=== PATIENT | female | born 1940 | race Caucasian/White ===

== ENCOUNTER 2018-08-30 16:28 | Inpatient (IN) ==
[2018-08-30 17:03] LABS: Baso % (Auto) 0.3 % (0.0-2.0); Eos # (Auto) 0.1 th/mm3 (0.0-0.4); Eos % (Auto) 1.3 % (0.0-4.0); Hematocrit 35.4 % (35.0-46.0); Hemoglobin 11.8 gm/dL (11.6-15.3); Lymph # (Auto) 1.5 th/mm3 (1.0-4.8); Lymph % (Auto) 13.7 % (9.0-44.0); Mean Corpuscular HGB Conc 33.2 % (32.0-36.0); Mean Corpuscular Hemoglobin 28.6 pg (27.0-34.0); Mean Corpuscular Volume 86.2 fL (80.0-100.0); Mean Platelet Volume 7.8 fL (7.0-11.0); Mono # (Auto) 0.8 th/mm3 (0.0-0.9); Mono % (Auto) 7.3 % (0.0-8.0); Neut # (Auto) 8.2 th/mm3 (1.8-7.7); Neut % (Auto) 77.4 % (16.0-70.0); Platelet Count 283 th/mm3 (150-450); Red Blood Count 4.11 mil/mm3 (4.00-5.30); Red Cell Distribution Width 15.4 % (11.6-17.2); White Blood Count 10.7 th/mm3 (4.0-11.0)
--- NOTE | 2018-08-30 17:19 | ED ---
HPI General Chief Complaint: Fall Stated Complaint: fall/evac Time Seen by Provider: 08/30/18 16:35 Source: patient Mode of arrival: EMS Limitations: no limitations History of Present Illness HPI Narrative: 78 y/o female had a trip and fall at the doctor's office and injured her left hip. She states she did not hit her head or blackout. She denies any complaints other than left hip pain. She states she recently broke that hip and Dr. mitchell did the repair at [facility]. She was actually at his office when she fell and they took an x-ray and confirm she had a fracture. Per the ambulance team he felt this was out of his scope of practice and wanted her to come to the trauma center for a different physician to fix her hip. Quality pain is sharp. Severity is improving. Patient received 10 mg of morphine prior to arrival. Pain is worse with movement. She denies other modifying factors. she states she did not hit her head Related Data Home Medications Medication Instructions Recorded Confirmed atorvastatin 40 mg PO HS 08/30/18 08/30/18 bupropion HCl 150 mg PO QAM 08/30/18 08/30/18 carvedilol 6.25 mg PO HS 08/30/18 08/30/18 fluoxetine 40 mg PO DAILY 08/30/18 08/30/18 hydrocodone-acetaminophen 1 tab PO Q4H 08/30/18 08/30/18 levothyroxine 50 mcg PO DAILY 08/30/18 08/30/18 lisinopril 40 mg PO DAILY 08/30/18 08/30/18 lorazepam 0.5 mg PO HS 08/30/18 08/30/18 Allergies Allergy/AdvReac Type Severity Reaction Status Date / Time No Known Allergies Allergy Verified 08/30/18 19:12 Review of Systems ROS: all other systems reviewed are negative PMFSH History History Provided By: Patient (recent hip fracture, hypertension, hypothyroidism) Medical History Medical History Anxiety (Acute) Depression (Acute) Hyperlipidemia (Acute) Hypertension (Acute) Hypothyroidism (Acute) Surgical History Surgical History History of repair of left hip joint (Acute) Family History Family History Other No pertinent family history Social History Social History Substance History: No History of Abuse Second Hand Smoke Exposure: No Smoking Status: Never smoker How Often Do You Have a Drink Containing Alcohol: Never Recent Travel in [facility] within the Last 8 Weeks: No Recent Out of Country Travel within the Last 8 Weeks: No Exam Narrative Exam Narrative: GENERAL: 78 y/o female in no apparent distress SKIN: Focused skin assessment warm/dry. HEAD: Atraumatic. Normocephalic. EYES: Pupils equal and round. No scleral icterus. No injection or drainage. ENT: No nasal bleeding or discharge. Mucous membranes pink and moist. NECK: Trachea midline. No JVD. CARDIOVASCULAR: Regular rate and rhythm. RESPIRATORY: No accessory muscle use. Clear to auscultation. Breath sounds equal bilaterally. GASTROINTESTINAL: Abdomen soft, non-tender, nondistended. MUSCULOSKELETAL: Pain with palpation of left hip with shortening and rotation, no pain with other joints , neurovascularly intact, no lacerations over, compartments soft. NEUROLOGICAL: Awake. Motor grossly within normal limits limited from hip fracture. Normal speech. PSYCHIATRIC: Appropriate mood and affect; insight and judgment normal. Course Reevaluation(s) Reevaluation #1: patient updated about fracture, agrees to admit Reevaluation #2: While I was in a cardiac arrest. Patient went upstairs before I talked with orthopedic physician although I had a call out. Patient updated upstairs and agrees to transfer if needed. Consultations Consultation #1: dr perez agrees to admit Consultation #2: dr Huertas states to call Dr. Rivera on a recorded line to state that he cannot accept this patient and what his recommendation is Consultation #3: dr rivera states will talk with [facility] about transfer dr huertas states this is not something he can do and need to transfer patient dr caballero who is now covering for the hospitalist states she does not know this patient and requests for me to call the transfer center but will put an order needed for transfer [phone] dr caballero graciously accepts to talk with the transfer center to coordinate care as my shift ended at 1900 and patient is already upstairs Initial Documented Vital Signs Temperature 98.3 F 08/30/18 16:34 Pulse Rate 79 11/13/18 16:34 Respiratory Rate 18 08/30/18 16:34 Blood Pressure 128/71 08/30/18 16:34 Pulse Oximetry 100 08/30/18 16:34 Last Documented Vital Signs Temperature 98.0 F 08/31/18 03:16 Pulse Rate 91 H 08/31/18 03:16 Respiratory Rate 18 08/31/18 03:16 Blood Pressure 130/81 08/31/18 03:16 Pulse Oximetry 97 08/31/18 03:16 Medical Decision Making MDM Narrative Medical decision making narrative: Will check x-ray and lab and reevaluate. Patient with emesis in x-ray after morphine was provided with Zofran Medical Screen Exam Complete: Yes Emergency Medical Condition: Yes Differential Diagnosis Differential Diagnosis: Fracture, dislocation, strain Lab Data Lab results reviewed: Yes I reviewed the patient's lab results. Result diagrams: 08/30/18 16:45 08/30/18 16:45 Lab Results 08/30/18 08/30/18 08/30/18 Range/Units 16:45 16:45 16:45 WBC 10.7 (4.0-11.0) th/mm3 RBC 4.11 (4.00-5.30) mil/mm3 Hgb 11.8 (11.6-15.3) gm/dL Hct 35.4 (35.0-46.0) % MCV 86.2 (80.0-100.0) fL MCH 28.6 (27.0-34.0) pg MCHC 33.2 (32.0-36.0) % RDW 15.4 (11.6-17.2) % Plt Count 283 (150-450) th/mm3 MPV 7.8 (7.0-11.0) fL Neut % (Auto) 77.4 H (16.0-70.0) % Lymph % (Auto) 13.7 (9.0-44.0) % Antelope % (Auto) 7.3 (0.0-8.0) % Eos % (Auto) 1.3 (0.0-4.0) % Baso % (Auto) 0.3 (0.0-2.0) % Neut # (Auto) 8.2 H (1.8-7.7) th/mm3 Lymph # (Auto) 1.5 (1.0-4.8) th/mm3 Antelope # (Auto) 0.8 (0.0-0.9) th/mm3 Eos # (Auto) 0.1 (0.0-0.4) th/mm3 Baso # (Auto) 0.0 (0.0-0.2) th/mm3 WBC Differential . Differential Comment Auto diff final PT 10.1 (9.8-11.6) sec INR 1.0 Ratio APTT 22.4 L (23.4-31.7) sec Sodium 138 (136-145) meq/L Potassium 3.9 (3.5-5.1) meq/L Chloride 104 (98-107) meq/L Carbon Dioxide 23.6 (21.0-32.0) meq/L Anion Gap 10 (5-15) meq/L BUN 14 (7-18) mg/dL Creatinine 0.97 (0.50-1.00) mg/dL Estimated GFR 56 L (>89) mL/min Random Glucose 123 H (74-106) mg/dL Calcium 9.1 (8.5-10.1) mg/dL Total Bilirubin 0.8 (0.2-1.0) mg/dL AST 22 (15-37) U/L ALT 23 (10-53) U/L Alkaline Phosphatase 120 H (45-117) U/L Total Protein 6.6 (6.4-8.2) g/dL Albumin 3.6 (3.4-5.0) g/dL Urine Color (Yellw/Straw) Urine Clarity (Clear) Urine pH (5.0-8.5) Ur Specific Solomon (1.002-1.035) Urine Protein (Neg-Trace) mg/dL Urine Glucose (UA) (Negative) mg/dL Urine Ketones (Negative) mg/dL Urine Occult Blood (Negative) Urine Nitrate (Negative) Urine Bilirubin (Negative) Urine Urobilinogen (Less than 2) mg/dL Ur Leukocyte Esterase (Negative) Urine RBC (0-3) /hpf Urine WBC (0-5) /hpf Ur Squamous Epith Cells (0-5) /hpf Hyaline Casts (0-3) /lpf Urine Mucus (Occasional) /lpf Ur Microscopic Review 08/30/18 Range/Units 21:30 WBC (4.0-11.0) th/mm3 RBC (4.00-5.30) mil/mm3 Hgb (11.6-15.3) gm/dL Hct (35.0-46.0) % MCV (80.0-100.0) fL MCH (27.0-34.0) pg MCHC (32.0-36.0) % RDW (11.6-17.2) % Plt Count (150-450) th/mm3 MPV (7.0-11.0) fL Neut % (Auto) (16.0-70.0) % Lymph % (Auto) (9.0-44.0) % Antelope % (Auto) (0.0-8.0) % Eos % (Auto) (0.0-4.0) % Baso % (Auto) (0.0-2.0) % Neut # (Auto) (1.8-7.7) th/mm3 Lymph # (Auto) (1.0-4.8) th/mm3 Antelope # (Auto) (0.0-0.9) th/mm3 Eos # (Auto) (0.0-0.4) th/mm3 Baso # (Auto) (0.0-0.2) th/mm3 WBC Differential Differential Comment PT (9.8-11.6) sec INR Ratio APTT (23.4-31.7) sec Sodium (136-145) meq/L Potassium (3.5-5.1) meq/L Chloride (98-107) meq/L Carbon Dioxide (21.0-32.0) meq/L Anion Gap (5-15) meq/L BUN (7-18) mg/dL Creatinine (0.50-1.00) mg/dL Estimated GFR (>89) mL/min Random Glucose (74-106) mg/dL Calcium (8.5-10.1) mg/dL Total Bilirubin (0.2-1.0) mg/dL AST (15-37) U/L ALT (10-53) U/L Alkaline Phosphatase (45-117) U/L Total Protein (6.4-8.2) g/dL Albumin (3.4-5.0) g/dL Urine Color Yellow (Yellw/Straw) Urine Clarity Clear (Clear) Urine pH 7.0 (5.0-8.5) Ur Specific Solomon 1.014 (1.002-1.035) Urine Protein Negative (Neg-Trace) mg/dL Urine Glucose (UA) Negative (Negative) mg/dL Urine Ketones Trace H (Negative) mg/dL Urine Occult Blood Negative (Negative) Urine Nitrate Negative (Negative) Urine Bilirubin Negative (Negative) Urine Urobilinogen Less than 2 (Less than 2) mg/dL Ur Leukocyte Esterase Negative (Negative) Urine RBC 2 (0-3) /hpf Urine WBC 2 (0-5) /hpf Ur Squamous Epith Cells <1 (0-5) /hpf Hyaline Casts 1 (0-3) /lpf Urine Mucus Few H (Occasional) /lpf Ur Microscopic Review Not Reportable Imaging Data Attestation: I personally reviewed and interpreted this imaging study as follows : Radiologist's impression: Chest X-Ray 08/30/18 16:39 CONCLUSION: No acute cardiopulmonary findings. Hip X-Ray 08/30/18 16:40 CONCLUSION: 1. Acute comminuted displaced fracture involving the left proximal femur in the region of the femoral component of the left total hip prosthesis. 2. Severe osteoarthritis involving the right hip joint. Discharge Plan Discharge Disposition Patient Disposition: 30 Still Patient Discharge Condition Condition: Stable Discharge Order Discharge Orders: Discharge Order (Routine); Ordered 08/31/18 Ordered By: Elke Caballero Discharge Details Anticipated Discharge Date: 08/31/18 Diagnosis: Closed hip fracture Physicians Team ED Provider: Kenyetta Canada Primary Care Provider: UNKNOWN, Attending Provider: Joe Ohara Other Providers: Hayes Huertas ; [employer] Status ED Status: Left Department Discharge Information Discharge Date/Time: 08/30/18 18:53
--- NOTE | 2018-08-30 17:20 | XR ---
EXAM DATE: 08/30/2018 5:17 PM EST AGE/SEX: 78 years / Female INDICATIONS: Evaluate for pneumonia, pneumothorax, or communicable disease, Pre op for hip surgery. CLINICAL DATA: This is the patient's initial encounter. Patient reports that signs and symptoms have been present for 1 day and indicates a pain score of 0/10. MEDICAL/SURGICAL HISTORY: None. None. COMPARISON: No comparison available. FINDINGS: A single AP view of the chest demonstrates the lungs to be symmetrically aerated without evidence of mass, focal consolidation, or effusion. No appreciable pneumothorax. The cardiomediastinal contours are unremarkable. Degenerative changes of the spine and shoulders. CONCLUSION: No acute cardiopulmonary findings. Electronically signed by: Neisha Terry MD 08/30/2018 5:19 PM EST
[2018-08-30 17:23] LABS: Albumin 3.6 g/dL (3.4-5.0); Anion Gap 10 meq/L (5-15); Aspartate Aminotransferase 22 U/L (15-37); Blood Urea Nitrogen 14 mg/dL (7-18); Calcium 9.1 mg/dL (8.5-10.1); Carbon Dioxide 23.6 meq/L (21.0-32.0); Chloride 104 meq/L (98-107); Glomerular Filtration Rate 56 mL/min (>89); Glucose,Random 123 mg/dL (74-106); Potassium 3.9 meq/L (3.5-5.1); Sodium 138 meq/L (136-145)
[2018-08-30 17:24] LABS: Activated Partial Thrombo Time 22.4 sec (23.4-31.7); Alanine Aminotransferase 23 U/L (10-53); Prothrombin Time 10.1 sec (9.8-11.6)
[2018-08-30 17:26] LABS: Alkaline Phosphatase 120 U/L (45-117); Total Protein 6.6 g/dL (6.4-8.2)
--- NOTE | 2018-08-30 17:27 | XR ---
EXAM DATE: 08/30/2018 5:20 PM EST AGE/SEX: 78 years / Female INDICATIONS: Left hip pain after fall. CLINICAL DATA: This is the patient's initial encounter. Patient reports that signs and symptoms have been present for 1 day and indicates a pain score of 10/10. MEDICAL/SURGICAL HISTORY: None. . Left hip replacement. COMPARISON: POI, XR HIP W/ AP PELVIS, BILATERAL, 05/30/2018. . FINDINGS: There is evidence of an acute comminuted displaced fracture involving the left proximal femur in the region of the femoral component of the total hip prosthesis. Severe osteoarthritis is noted involving the right hip joint. CONCLUSION: 1. Acute comminuted displaced fracture involving the left proximal femur in the region of the femora l component of the left total hip prosthesis. 2. Severe osteoarthritis involving the right hip joint. Electronically signed by: Polo Morton MD 08/30/2018 5:26 PM EST
[2018-08-30] MEDS ORDERED: Acetaminophen 325 MG Tablet PO PRN ×2 (17:59→18:00)
[2018-08-30] MEDS ORDERED: Naloxone Inj 0.4 MG/ML Vial IV.PUSH PRN (17:59)
[2018-08-30] MEDS ORDERED: Morphine Inj 4 MG/ML Vial IV.PUSH PRN (17:59)
[2018-08-30] MEDS ORDERED: Morphine Sulfate Inj 2 MG/ML Vial IV.PUSH PRN (17:59)
[2018-08-30] MEDS ORDERED: Bisacodyl 10 MG Supp RECTAL PRN (18:00)
--- NOTE | 2018-08-30 19:01 | P.HP ---
History of Present Illness Primary Care Physician: UNKNOWN Chief Complaint: Left hip pain History of Present Illness: This is a 78-year-old female with a history of hypertension, hyperlipidemia, hypothyroidism, anxiety and depression. Patient recently underwent left hip surgery secondary to osteoarthritis 7 weeks ago. Today she was at her orthopedist office for follow-up when her left lower extremity gave way and she fell landing on her left hip. She then complained of severe constant left hip pain worse with movement. She was unable to ambulate. X-ray at the office confirmed a fracture. According to the ED physician, EMS was advised by the orthopedist to bring patient to the trauma center since he felt this was out of the scope of practice. Hip x-ray independently reviewed by me shows acute comminuted displaced fracture involving the left proximal femur. All other systems reviewed negative Inpatient Certification: I certify that the inpatient services were ordered in accordance with Medicare regulations governing the order. This includes certification that hospital inpatient services are reasonable and necessary and in the case of services not specified as inpatient-only under 42 CFR 419.22(n), that they are appropriately provided as inpatient services in accordance to with the 2-midnight benchmark under 43 CFR 412.3(e) Estimated Total Length of Stay (Days): 2 Plans for Post Hospital Care: SNF Review of Systems All other systems reviewed negative except as stated in HPI PMFSH - History History Provided By: Patient (recent hip fracture) - Medical / Surgical Hx Neg / Unobtainable Medical Problems Denied: Yes - Medical History Medical History: Medical History (Last Updated 08/30/18 @ 18:49 by Sagar Castaneda MD) Anxiety Depression Hyperlipidemia Hypertension Hypothyroidism - Surgical History Surgical History: Surgical History (Last Updated 08/30/18 @ 18:50 by Sagar Castaneda MD) History of repair of left hip joint - Family History Family History: Family History (Last Updated 08/30/18 @ 18:50 by Sagar Castaneda MD) Other No pertinent family history - Social History I have reviewed the patient's Social History: Yes - Tobacco History Smoking Status: Never smoker - Alcohol History How Often Do You Have a Drink Containing Alcohol: Never - Travel History Recent Travel in the [place] Within the Last 8 Weeks: No Recent Travel Out of the Country Within the Last 8 Weeks: No - Immunization History Tetanus Immunization: <5 Years Medications and Allergies Active Medications: Active Medications Acetaminophen (Tylenol) 650 mg PO Q6HR PRN PRN Reason: PAIN SCALE 1 TO 2 Acetaminophen (Tylenol) 650 mg PO Q4H PRN PRN Reason: Temp > 100.4 Hydrocodone Bitart/Acetaminophen ([place] 5/325) 1 tab PO Q4H PRN PRN Reason: PAIN SCALE 3 TO 5 Hydrocodone Bitart/Acetaminophen ([place] 7.5/325) 1 tab PO Q4H PRN PRN Reason: PAIN SCALE 6 TO 10 Al Hydroxide/Mg Hydroxide (Milk Of Magnesia Liq) 30 ml PO Q12H PRN PRN Reason: Mild Constipation Bisacodyl (Dulcolax Supp) 10 mg RECTAL DAILY PRN PRN Reason: SEVERE CONSITIPATION Lactulose (Lactulose Liq) 30 ml PO DAILY PRN PRN Reason: SEVERE CONSITIPATION Morphine Sulfate (Morphine Inj) 1 mg IV.PUSH Q3H PRN PRN Reason: PAIN 3-5; IF UABLE TO TAKE PO Morphine Sulfate (Morphine Inj) 2 mg IV.PUSH Q3H PRN PRN Reason: PAIN 6-10;IF UNABLE TO TAKE PO Morphine Sulfate (Morphine Inj) 2 mg IV.PUSH Q3H PRN PRN Reason: BREAKTHROUGH PAIN Naloxone HCl (Narcan Inj) 0.4 mg IV.PUSH UNSCH PRN PRN Reason: SEE LABEL COMMENTS Ondansetron HCl (Zofran Inj) 4 mg IV.PUSH Q6H PRN PRN Reason: NAUSEA OR VOMITING Senna/Docusate Sodium (Bernie-Colace) 1 tab PO BID TAMMY Sennosides (Senokot) 17.2 mg PO Q12H PRN PRN Reason: Moderate Constipation Sodium Chloride (Ns Flush) 2 ml IV.FLUSH UNSCH PRN PRN Reason: FLUSH AFTER USING IV ACCESS Allergies Allergy/AdvReac Type Severity Reaction Status Date / Time No Allergy Information Allergy Unverified 08/30/18 16:39 Available Exam Vital signs: Vital Signs 08/30/18 16:34 08/30/18 16:39 Temperature 98.3 F Pulse Rate 79 Respiratory Rate 18 Blood Pressure 128/71 Pulse Oximetry 100 100 Intake & Output 08/29/18 08/30/18 08/30/18 18:59 06:59 18:59 Weight 67.132 kg Narrative: GENERAL: Well-developed, well-nourished in no distress SKIN: Warm and dry. HEAD: Atraumatic. Normocephalic. EYES: Pupils equal and round. No scleral icterus. No injection or drainage. ENT: No nasal bleeding or discharge. Mucous membranes pink and moist. NECK: Trachea midline. No JVD. CARDIOVASCULAR: Regular rate and rhythm. RESPIRATORY: No accessory muscle use. Clear to auscultation. Breath sounds equal bilaterally. GASTROINTESTINAL: Abdomen soft, non-tender, nondistended. MUSCULOSKELETAL: Extremities without clubbing, cyanosis, or edema. Left thigh swollen and tender. LLE is shortened NEUROLOGICAL: Awake and alert. No obvious cranial nerve deficits. Motor grossly within normal limits. Five out of 5 muscle strength in the arms and legs. Normal speech. PSYCHIATRIC: Appropriate mood and affect; insight and judgment normal. Results - Labs CBC & Chem 7: 08/30/18 16:45 08/30/18 16:45 Labs: Laboratory Results - last 24 hr 08/30/18 08/30/18 08/30/18 16:45 16:45 16:45 WBC 10.7 RBC 4.11 Hgb 11.8 Hct 35.4 MCV 86.2 MCH 28.6 MCHC 33.2 RDW 15.4 Plt Count 283 MPV 7.8 Neut % (Auto) 77.4 H Lymph % (Auto) 13.7 [place] % (Auto) 7.3 Eos % (Auto) 1.3 Baso % (Auto) 0.3 Neut # (Auto) 8.2 H Lymph # (Auto) 1.5 [place] # (Auto) 0.8 Eos # (Auto) 0.1 Baso # (Auto) 0.0 WBC Differential . Differential Comment Auto diff final PT 10.1 INR 1.0 APTT 22.4 L Sodium 138 Potassium 3.9 Chloride 104 Carbon Dioxide 23.6 Anion Gap 10 BUN 14 Creatinine 0.97 Estimated GFR 56 L Random Glucose 123 H Calcium 9.1 Total Bilirubin 0.8 AST 22 ALT 23 Alkaline Phosphatase 120 H Total Protein 6.6 Albumin 3.6 - Imaging Impressions Chest X-Ray 08/30/18 16:39 CONCLUSION: No acute cardiopulmonary findings. Hip X-Ray 08/30/18 16:40 CONCLUSION: 1. Acute comminuted displaced fracture involving the left proximal femur in the region of the femoral component of the left total hip prosthesis. 2. Severe osteoarthritis involving the right hip joint. Caprini VTE Risk Assessment Caprini VTE Risk Assessment: Moderate/High Risk (score >= 2) Caprini Risk Assessment Model: Point Value = 1 Point Value = 2 Point Value = 3 Point Value = 5 Age 41-60 Minor surgery BMI > 25 kg/m2 Swollen legs Varicose veins or History of unexplained or recurrent spontaneous Oral contraceptives or hormone replacement Sepsis (< 1 month) Serious lung disease, including pneumonia (< 1 month) Abnormal pulmonary function Acute myocardial infarction Congestive heart failure (< 1 month) History of inflammatory bowel disease Medical patient at bed rest Age 61-74 Arthroscopic surgery Major open surgery (> 45 min) Laparoscopic surgery (> 45 min) Malignancy Confined to bed (> 72 hours) Immobilizing plaster cast Central venous access Age >= 75 History of VTE Family history of VTE Factor V Leiden Prothrombin [id number] Lupus anticoagulant Anticardiolipin antibodies Elevated serum homocysteine Heparin-induced thrombocytopenia Other congenital or acquired thrombophilia Stroke (< 1 month) Elective arthroplasty Hip, pelvis, or leg fracture Acute spinal cord injury (< 1 month) Prophylaxis Regimen: Total Risk Factor Score Risk Level Prophylaxis Regimen 0-1 Low Early ambulation 2 Moderate Order ONE of the following: *Sequential Compression Device (SCD) *Heparin 5000 units SQ BID 3-4 Higher Order ONE of the following medications: *Heparin 5000 units SQ TID *Enoxaparin/Lovenox 40 mg SQ daily (WT < 150 kg, CrCl > 30 mL/min) *Enoxaparin/Lovenox 30 mg SQ daily (WT < 150 kg, CrCl > 10-29 mL/min) *Enoxaparin/Lovenox 30 mg SQ BID (WT < 150 kg, CrCl > 30 mL/min) AND/OR *Sequential Compression Device (SCD) 5 or more Highest Order ONE of the following medications: *Heparin 5000 units SQ TID (Preferred with Epidurals) *Enoxaparin/Lovenox 40 mg SQ daily (WT < 150 kg, CrCl > 30 mL/min) *Enoxaparin/Lovenox 30 mg SQ daily (WT < 150 kg, CrCl > 10-29 mL/min) *Enoxaparin/Lovenox 30 mg SQ BID (WT < 150 kg, CrCl > 30 mL/min) AND *Sequential Compression Device (SCD) Assessment and Plan - Plan This is a 78-year-old female with a history of hypertension, hyperlipidemia, hypothyroidism, anxiety and depression. Patient recently underwent left hip surgery secondary to osteoarthritis 7 weeks ago. Today she fell landing on her left hip. She then complained of severe constant left hip pain worse with movement. She was unable to ambulate. Hip x-ray acute comminuted displaced fracture involving the left proximal femur. Acute comminuted displaced fracture of the left proximal femur. Patient will be admitted for definitive repair. Consult orthopedic surgery. Pain management with Lortab and IV morphine. Nursing to update med list (patient takes 7 medications which are lisinopril, carvedilol, Fluoxetine, bupropion, diazepam and lovastatin Follow-up pending EKG DVT prophylaxis with SCD. Pharmacological prophylaxis when cleared by orthopedic surgery Discharge Planning: SNF when cleared by ortho
[2018-08-30] MEDS: Morphine Inj 4 MG/ML Vial IV.PUSH PRN ×2 (19:13→22:20)
[2018-08-30] MEDS ORDERED: Senna/Docusate Sodium 8.6/50 MG Tablet PO SCH (21:00)
[2018-08-30 22:33] LABS: Bilirubin,Urine Negative (Negative); Clarity,Urine Clear (Clear); Color,Urine Yellow (Yellw/Straw); Glucose,Urine (UA) Negative (Negative); Hyaline Casts,Urine 1 /lpf (0-3); Leukocyte Esterase,Urine Negative (Negative); Mucus,Urine Few /lpf (Occasional); Nitrite,Urine Negative (Negative); Specific Gravity,Urine 1.014 (1.002-1.035); Squamous Epithelial Cell,Urine <1 /hpf (0-5)
[2018-08-30] MEDS ORDERED: LORazepam 0.5 MG Tablet PO SCH (23:15)
[2018-08-30] MEDS ORDERED: Carvedilol 6.25 MG Tablet PO SCH (23:15)
[2018-08-31] MEDS: Morphine Inj 4 MG/ML Vial IV.PUSH PRN ×2 (03:14→05:02)
[2018-08-31 03:18] VITALS: BP 130/81; PULSE 91; RESP 18; TEMP 98; O2SAT 97
[2018-08-31] MEDS ORDERED: Levothyroxine 50 MCG Tablet PO SCH (06:00)
[2018-08-31] MEDS ORDERED: buPROPion 150 MG 12 HR Tablet PO SCH (09:00)
[2018-08-31] MEDS ORDERED: FLUoxetine 20 MG Capsule PO SCH (09:00)
[2018-08-31] MEDS ORDERED: Lisinopril 20 MG Tablet PO SCH (09:00)
--- NOTE | 2018-08-31 11:38 | ECG ---
Date Performed: 08/30/2018 Time Performed: 21:51:32 PTAGE: 78 years EKG: Sinus rhythm NORMAL ECG NO PREVIOUS TRACING DOCTOR: Hardeep Flowers Interpretating Date/Time 08/31/2018 11:35:54
== END 2018-08-31 05:15 | disposition short-term general hospital (02) ==
LOC: NEPC 16:28 → NEDA 18:00 → N06 18:46
PROVIDERS: ADMIT Internal Medicine; ATTEND Internal Medicine